=== PATIENT | female | born 1995 | race African-American/Black ===

== ENCOUNTER 2021-02-25 22:08 | Emergency (ER) | payer BC, SELFPAY ==
[2021-02-25 22:13] VITALS: BP 115/81; PULSE 101; RESP 22; TEMP 36.8; O2SAT 98
[2021-02-25] MEDS: EPINEPHrine HCL INJ 1 MG/ML AMPUL 0.3 MG IM (22:24)
--- NOTE | 2021-02-25 22:26 | ED.ALLEREA ---
HPI - Allergic Reaction General Chief complaint: Allergic Reaction Stated complaint: allergic reaction Time Seen by Provider: 02/25/21 22:13 Source: patient and RN notes reviewed Mode of arrival: ambulatory Limitations: no limitations History of Present Illness HPI narrative: Patient is 25 years old -[place] female presented to the ED with allergic reaction after eating seafood 1-1/2-hour ago. Patient presents with itchy eyes, face, swelling eyelids, shortness of breath, squeezing throat. Patient received 50 mg of Benadryl orally prior to arrival to the emergency room. History of food allergy including seafood and pistachio. Patient smokes marijuana, does not drink or smoke tobacco. Related Data Allergies Allergy/AdvReac Type Severity Reaction Status Date / Time avocado Allergy Unknown Swelling Verified 02/25/21 22:21 of Lip/Tongue/Throat tree nut Allergy Unknown Swelling Verified 02/25/21 22:21 of Lip/Tongue/Throat Pistachio Allergy Unknown Swelling Uncoded 02/25/21 22:21 of Lip/Tongue/Throat White Fish Allergy Unknown Swelling Uncoded 02/25/21 22:21 of Lip/Tongue/Throat Review of Systems Review of Systems: Narrative: CONSTITUTIONAL: Denies fever, chills, or sweats. EYES: Denies visual changes, redness, or discharge. ENT: Denies rhinorrhea, congestion, sore throat, or otalgia. CARDIOVASCULAR: Denies chest pain, palpitations, or edema. RESPIRATORY: Denies cough or dyspnea. GASTROINTESTINAL: Denies abdominal pain, nausea, vomiting, or diarrhea. GENITOURINARY: Denies dysuria or hematuria. SKIN: Denies rash or itching. MUSCULOSKELETAL: Denies back pain, joint pain, or myalgia. NEUROLOGIC: Denies headache, numbness, or weakness. PSYCHIATRIC: Denies anxiety or depression. Exam Narrative: Exam Narrative: General appearance: Well-developed, well-nourished Skin: Normal color Head: Normocephalic, nontraumatic Eyes: Clear conjunctiva, swollen eyelids bilaterally ENT: Oropharynx normal, ears normal, nose normal, normal sized tongue and lips Neck: Supple, nontender Chest and respiratory: Airway patent, no respiratory distress, no accessory muscle use, no rhonchi or wheezing Heart: Regular rate/rhythm Abdomen: Soft, nontender, no organomegaly, quiet bowel sounds Vascular: Normal peripheral pulses, normal capillary refill. 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 IV Solu-Medrol, epinephrine IM, Pepcid orally ordered. Further plan to follow Differential Diagnosis Differential diagnosis: Likely allergic reaction Critical Care Time Critical Care Time Critical Care Time: Yes Total Critical Care Time: 35 Discharge Plan Discharge Clinical Impression: Allergic reaction Patient Disposition: Home, Self-Care Condition: Improved Instructions: Food Allergy (ED) Additional Instructions: Return if symptoms are worsening , call your family physician for appointment, take Tylenol as as needed for aches and pain, continue home medications. Pr
[2021-02-25] MEDS: methylPREDNISolone SOD SUCC 125 MG VIAL IV PUSH (22:27)
[2021-02-25] MEDS: FAMOTIDINE 20 MG TABLET PO (22:32)
[2021-02-25 23:01] VITALS: O2SAT 96
[2021-02-25 23:17] VITALS: O2SAT 100
[2021-02-26 00:47] VITALS: BP 106/59; PULSE 90; RESP 16; O2SAT 98
[2021-02-26 02:58] VITALS: BP 107/63; PULSE 73; RESP 16; O2SAT 97
== END 2021-02-26 02:39 | disposition home or self-care (01) ==
LOC: ANHED 22:33
PROVIDERS: Emergency Provider Emergency Medicine
DX: T78.40XA Allergy, unspecified, initial encounter (principal)
CPT/HCPCS: 96372; 96374; 99284; A9270; J0171; J2930